=== PATIENT | female | born 1940 | race African-American/Black ===

== ENCOUNTER 2016-12-28 15:01 | Emergency (ER) | payer OTHER ==
[~2016-12-28] VITALS: Ht 162.6 cm; Wt 65.0 kg
[2016-12-28 15:17] VITALS: BP 132/62
[2016-12-28] MEDS ORDERED: LISI2.5T47 PO (15:21)
[2016-12-28] MEDS ORDERED: LEVO25TA7 PO (15:21)
[2016-12-28] MEDS ORDERED: AMLO2.5T45 PO (15:21)
[2016-12-28] MEDS ORDERED: KETOROLAC 60MG/2ML VIAL IM ONE (16:00)
[2016-12-28] MEDS ORDERED: ACETAMINOPHEN WITH CODEINE 300/30MG TABLET PO ONE (16:00)
[2016-12-28] MEDS ORDERED: METHOCARBAMOL 500MG TABLET PO ONE (16:00)
== END 2016-12-28 16:30 | disposition left against medical advice (07) ==
LOC: ER 15:43
DX: M54.2 Cervicalgia (principal); I10 Essential (primary) hypertension; E78.00 Pure hypercholesterolemia, unspecified; V49.9XXA Car occupant (driver) (passenger) injured in unspecified traffic accident, initial encounter; Y93.89 Activity, other specified; Y99.8 Other external cause status; Y92.410 Unspecified street and highway as the place of occurrence of the external cause; Z98.890 Other specified postprocedural states
CPT/HCPCS: 99283